=== PATIENT | male | born 1975 | race African-American/Black ===

== ENCOUNTER 2023-10-22 12:28 | Emergency (ER) | payer SELFPAY ==
[~2023-10-22] VITALS: Ht 177.8 cm; Wt 68.2 kg
[2023-10-22 12:34] VITALS: TEMP 97.7
[2023-10-22] MEDS ORDERED: Meclizine 25 MG TAB PO ONE (13:15)
[2023-10-22] MEDS ORDERED: droPERidol 2.5 MG/ML 2 ML VIAL IV ONE (13:15)
[2023-10-22] MEDS ORDERED: NS 1,000 ML IV ONE (13:15)
[2023-10-22 13:49] LABS: COLLECTION METHOD CLEAN CATCH
[2023-10-22 13:56] LABS: BASO % 0.2 % (0.0-2.0); EOS % 0.6 % (0.0-4.0); GRAN # 3.4 K/mm3 (1.4-6.5); GRAN % 69.1 % (42.2-75.2); HEMATOCRIT 43.4 % (42.0-52.0); HEMOGLOBIN 14.5 g/dl (13.5-18.0); LYMPH # 1.2 K/mm3 (1.2-3.4); LYMPH % 24.1 % (20.0-51.0); MEAN CELL VOLUME 80 fl (80.0-100.0); MEAN CORPUSCULAR HEMOGLOBIN 27 pg (27-31); MEAN CORPUSCULAR HGB CONC 33 g/dl (33.0-37.0); MEAN PLATELET VOLUME 8.4 fl (7.4-10.4); MONO # 0.3 K/mm3 (0.1-0.6); MONO % 5.8 % (1.7-9.3); PLATELET COUNT 330 K/mm3 (130-400); RED BLOOD COUNT 5.44 M/mm3 (4.20-5.60); REDCELL DISTRIBUTION WIDTH-CV 14.1 % (11.5-14.5)
[2023-10-22 13:57] LABS: URINE APPEARANCE CLEAR (CLEAR/HAZY); URINE BLOOD NEGATIVE (NEGATIVE); URINE COLOR YELLOW (YELLOW); URINE GLUCOSE NEGATIVE (NEGATIVE); URINE KETONE NEGATIVE (NEGATIVE); URINE NITRATE NEGATIVE (NEGATIVE); URINE PROTEIN(semi-quant) NEGATIVE (NEGATIVE); URINE UROBILINOGEN 0.2 E.U/dL (0.2-1.0)
[2023-10-22 14:12] LABS: ALBUMIN 3.9 g/dL (3.5-5.0); BILIRUBIN,TOTAL 0.5 mg/dL (0.2-1.2); CALCIUM 9.8 mg/dL (8.4-10.2); CREATININE, serum 0.86 mg/dL (0.72-1.25); POTASSIUM 3.9 mEq/L (3.5-4.5); TOTAL PROTEIN 7.7 g/dl (6.2-8.1)
[2023-10-22 14:21] LABS: TRICYCLIC ANTIDEPRESS URINE NEGATIVE (NEGATIVE)
[2023-10-22 15:58] VITALS: BP 127/78; PULSE 56
== END 2023-10-22 15:58 | disposition home or self-care (01) ==
LOC: COL.ER 12:28
PROVIDERS: Physician Assistant
DX: R42 Dizziness and giddiness (principal); R11.2 Nausea with vomiting, unspecified
CPT/HCPCS: J1790; J7030

== ENCOUNTER 2023-11-04 13:00 | Outpatient (RCR) | payer OTHER ==
[2023-11-07] MEDS ORDERED: PREDNISONE20 MG PO (19:23)
== END 2023-11-06 ==
LOC: WSOT
DX: G56.03 Carpal tunnel syndrome, bilateral upper limbs (principal)

== ENCOUNTER 2023-11-07 16:16 | Emergency (ER) | payer OTHER ==
[~2023-11-07] VITALS: Ht 177.8 cm; Wt 68.2 kg
[2023-11-07 16:32] VITALS: BP 129/87; TEMP 98.1
[2023-11-07] MEDS ORDERED: PREDNISONE20 MG PO (19:23)
[2023-11-07] MEDS ORDERED: predniSONE 20 MG TAB PO ONE (19:30)
[2023-11-07 19:35] VITALS: PULSE 78
== END 2023-11-07 19:35 | disposition home or self-care (01) ==
LOC: COL.ER 16:16
DX: H15.102 Unspecified episcleritis, left eye (principal); F17.210 Nicotine dependence, cigarettes, uncomplicated
CPT/HCPCS: J7512

== ENCOUNTER → 2023-12-07 | Outpatient (RCR) | payer OTHER ==
[~2023-12-07] MED LIST: PREDNISONE20 MG PO
== END | disposition home or self-care (01) ==
LOC: WSOT
DX: G56.03 Carpal tunnel syndrome, bilateral upper limbs (principal)

== ENCOUNTER 2024-01-05 12:45 | Outpatient (RCR) | payer OTHER | END 2024-01-07 | disposition home or self-care (01) | LOC: WSOT | DX: G56.03 Carpal tunnel syndrome, bilateral upper limbs (principal) ==